=== PATIENT | male | born 2000 | race Asian ===

== ENCOUNTER 2018-06-06 09:22 | Emergency (ER) | payer OTHER ==
[~2018-06-06] VITALS: Ht 172.7 cm; Wt 64.9 kg
[2018-06-06 09:33] VITALS: BP 129/108
--- NOTE | 2018-06-06 09:45 | NUR ---
PT. BIB SELF WITH C/O LEFT KNEE PAIN X YESTERDAY, + SWELLING, - EDEMA, - DEFORMITY, < 3 CAP REFILL. PT STATES HE SLIP OFF THE STAIRS AND TWISTED HIS LEFT KNEE. 9/10 SHARP THROBBING PAIN THAT IS NON RADIATING ON L KNEE. PEDAL PULSES PRESENT 3+ BILAT. PT STATES " I CAN NOT WALK IT HURTS A LOT" PT. UNABLE TO HYPER EXTEND OR BEND L KNEE AT THIS TIME. ER MD MADE AWARE OF PATIENT STATUS. WILL CONTINUE TO MONITOR. SAFETY PRECAUTIONS IMPLEMENTED.
[2018-06-06] MEDS ORDERED: HYDROcodone/APAP 5/325 MG 1 TAB TAB PO ONE (10:15)
[2018-06-06] MEDS ORDERED: KETOROLAC 60 MG/2 ML VIAL IM ONE (10:15)
--- NOTE | 2018-06-06 10:52 | NUR ---
PT. RESTING COMFORTABLY IN BED, RR EVEN AND UNLABORED. HOB ELEVATED. FAMILY AT BEDSIDE. WILL CONTINUE TO MONITOR.
--- NOTE | 2018-06-06 11:47 | NUR ---
PT. PROVIDED WITH A KNEE IMMOBILIZER TO L KNEE AND CRUTCHES. PEDAL PULSES 3+ BILAT AND STRONG. DENIES ANY NUMBING OR TINGLING SENSATION TO L LEG. PT ABLE TO AMBULATE WITH CRUTCHES APPROPRIATE AND RETURN DEMONSTRATION GIVEN.
[2018-06-06 11:56] VITALS: BP 116/63
--- NOTE | 2018-06-06 11:56 | NUR ---
Patient discharged with v/s stable. Written and verbal after care instructions given and explained. Patient alert, oriented and verbalized understanding of instructions. Ambulatory with steady gait. All questions addressed prior to discharge. ID band removed. Patient advised to follow up with PMD. Rx of NAPROSYN 375MG, AND TRAMADOL 50MG given. Patient educated on indication of medication including possible reaction and side effects. Opportunity to ask questions provided and answered.
== END 2018-06-06 11:56 | disposition home or self-care (01) ==
LOC: MED 09:22
DX: S89.92XA Unspecified injury of left lower leg, initial encounter (principal); J45.909 Unspecified asthma, uncomplicated; W10.9XXA Fall (on) (from) unspecified stairs and steps, initial encounter; Y93.89 Activity, other specified; Y92.89 Other specified places as the place of occurrence of the external cause; Y99.8 Other external cause status
CPT/HCPCS: 29505; 73562; 99283; Q0092; J1885

== ENCOUNTER 2021-11-28 17:13 | Emergency (ER) | payer OTHER ==
[~2021-11-28] VITALS: Ht 172.7 cm; Wt 53.1 kg
[2021-11-28 17:20] VITALS: BP 104/84
[2021-11-28] MEDS ORDERED: ONDANSETRON 4 MG ODT PO ONE (17:25)
[2021-11-28] MEDS ORDERED: DICYCLOMINE HCL LIQUID 20 MG, ALUMINUM HYD/MAG/SIMETHICONE 30 ML, LIDOCAINE VISCOUS 2% ... PO ONE ×3 (17:25)
[2021-11-28] MEDS ORDERED: MAG355OR2 PO (17:27)
[2021-11-28] MEDS ORDERED: BISM262C53 PO (17:27)
[2021-11-28] MEDS ORDERED: ONDA-188 PO (17:27)
[2021-11-28 17:42] LABS: BASOPHILS % (AUTO) 0.1 % (0.0-2.0); LYMPHOCYTES # (AUTO) 0.5 K/uL (2.0-11.5); LYMPHOCYTES % (AUTO) 3.2 % (20.5-51.1); MEAN CORPUSCULAR HEMOGLOBIN 29 pg (27-31); MEAN CORPUSCULAR HGB CONC 33 g/dL (33-37); MEAN CORPUSCULAR VOLUME 85.6 fL (80-94); MONOCYTES # (AUTO) 0.5 K/uL (0.8-1.0); MONOCYTES % (AUTO) 3.2 % (1.7-9.3); NEUTROPHILS # (AUTO) 15.8 K/uL (1.8-7.7); NEUTROPHILS % (AUTO) 93.5 % (42.2-75.2); PLATELET COUNT (AUTO) 249 K/uL (140-450); RED BLOOD CELL COUNT(AUTO) 5.62 MIL/uL (4.20-6.10); RED CELL DISTRIBUTION WIDTH 13.8 % (11.6-13.7); WHITE BLOOD COUNT (AUTO) 16.9 K/uL (4.8-10.8)
[2021-11-28] MEDS ORDERED: ALUMINUM HYD/MAG/SIMETHICONE 30 ML UDC ONE (17:44)
[2021-11-28] MEDS ORDERED: DICYCLOMINE HCL LIQUID 10 MG/5 ML UDC ONE (17:44)
--- NOTE | 2021-11-28 18:02 | NUR ---
PT IS ROOM 4.
[2021-11-28] MEDS ORDERED: ONDANSETRON 4 MG/2 ML VIAL IVP ONE (18:05)
[2021-11-28] MEDS ORDERED: NACL 0.9% 1,000 ML IV ONE (18:05)
[2021-11-28 18:06] LABS: ALBUMIN 5.1 g/dL (3.4-5.0); ANION GAP 17.1 (8-16); CREATININE 0.9 mg/dL (0.6-1.3); TOTAL BILIRUBIN 0.9 mg/dL (0.0-1.0)
[2021-11-28 18:08] LABS: POTASSIUM 5.1 mmol/L (3.5-5.1)
[2021-11-28] MEDS ORDERED: KETOROLAC 15 MG/ML VIAL IVP ONE (18:10)
[2021-11-28] MEDS ORDERED: FAMOTIDINE 20 MG/2 ML VIAL IVP ONE (18:10)
--- NOTE | 2021-11-28 18:45 | NUR ---
21YR OLD MALE BIB SELF C/O ABD PAIN. PAIN MID ABD RADIATES TO LLQ AND RLQ. 7/10 ACHE PAIN. V/D. DENIES FEVER. PATIENT STATES VOMITING STARTED THIS MORING AFTER ORDERING FOOD. PT HAS VOMITED AFTER RECIEVING ORAL MEDS. 22G R AC . HOB ELEVATED. SIDE RAILS UP X2. BED AT LOWEST POSITION. NKDA ASTHMA
--- NOTE | 2021-11-28 18:48 | NUR ---
US AT BEDSIDE
--- NOTE | 2021-11-28 18:53 | NUR ---
ULTRASOUND AT BEDSIDE
[2021-11-28 19:40] VITALS: BP 129/76
--- NOTE | 2021-11-28 19:40 | NUR ---
Patient discharged with v/s stable. Written and verbal after care instructions given and explained. Patient alert, oriented and verbalized understanding of instructions. Ambulatory with steady gait. All questions addressed prior to discharge. ID band removed. Patient advised to follow up with PMD. WRITTEN Rx of MAALOX, ZOFRRAN,PEPTO - BISMOL given. Opportunity to ask questions provided and answered.
== END 2021-11-28 19:40 | disposition home or self-care (01) ==
LOC: MED 17:13
DX: K29.70 Gastritis, unspecified, without bleeding (principal); J45.909 Unspecified asthma, uncomplicated; F12.90 Cannabis use, unspecified, uncomplicated; Z79.899 Other long term (current) drug therapy; Z98.890 Other specified postprocedural states
CPT/HCPCS: 36415; 76705; 80053; 83690; 85025; 96361; 96374; 96375; 99284; J1885; J2405; J3490; J7030; Q0092; Q0162